=== PATIENT | female | born 1945 | race Hispanic/Latino ===

== ENCOUNTER 2019-07-24 11:01 | Observation (INO) | payer MEDICARE, OTHER ==
--- NOTE | 2019-07-23 15:48 | NUR ---
Checked patient temperature via skin probe: 97.7F. Patient denies being out of the country in the last 14 days. Patient denies being around anyone that has been out of the country in the last 14 days. Patient denies fever, cough and shortness of breath in the last 14 days.
[2019-07-23 16:00] LABS: BASOPHILS % 0.2 % (0.0-1.0); EOSINOPHILS # (AUTO) 0.1 (0.0-0.4); HEMATOCRIT 38.8 % (34.2-44.1); HEMOGLOBIN 12.7 g/dL (12.0-16.0); LYMPHOCYTES # (AUTO) 1.1 (1.0-3.2); MEAN CORPUSCULAR HEMOGLOBIN 31.2 pg (28-32); MEAN CORPUSCULAR HGB CONC 32.7 g/dL (31-35); MEAN CORPUSCULAR VOLUME 95.3 fL (81-99); MONOCYTES # (AUTO) 0.4 (0.2-0.8); MONOCYTES % 8.5 % (4.4-11.3); NEUTROPHILS # (AUTO) 3.4 (2.1-6.9); NEUTROPHILS % 68.1 % (38.7-80.0); PLATELET COUNT 225 x10e3/uL (140-360); RED BLOOD COUNT 4.07 x10e6/uL (3.6-5.1); RED CELL DISTRIBUTION WIDTH 13.2 % (11.7-14.4)
[2019-07-23 16:24] LABS: ALANINE AMINOTRANSFERASE 21 IU/L (0-55); ALBUMIN 4.2 g/dL (3.5-5.0); ALKALINE PHOSPHATASE 112 IU/L (40-150); ANION GAP 9.5 mmol/L (8-16); BLOOD UREA NITROGEN 7 mg/dL (7-26); BUN/CREATININE RATIO 9 (6-25); CALCIUM 9.4 mg/dL (8.4-10.2); CARBON DIOXIDE 27 mmol/L (22-29); CHLORIDE 106 mmol/L (98-107); CREATININE, SERUM 0.78 mg/dL (0.57-1.11); EST GLOMERULAR FILTRATION RATE > 60 ML/MIN (60-); GLUCOSE 150 mg/dL (74-118); POTASSIUM 3.5 mmol/L (3.5-5.1); SODIUM 139 mmol/L (136-145)
[~2019-07-24] VITALS: Ht 149.9 cm; Wt 57.2 kg
[~2019-07-24 11:01] MED LIST: AMLODIPINE BESYL5 MG PO; BENAZEPRIL HCL10 MG PO
--- OUTSIDE RECORDS SUMMARY | 2019-07-24 11:04 | XMS REPORT ---
Author Organization Unknown Address [address] [place] [address] Phone [phone] Care Team Providers Care Pension Manager Name Role Phone Yin Rivas 60 [phone] Allergies Code Code System Name Reaction Severity Status Onset No Known Allergies Active Medications Name Status Start Date Stop Date amlodipine 5 mg tablet Take 1 tablet every day by oral route. Active Not available aspirin 81 mg chewable tablet Chew 1 tablet every day by oral route. Active Not available atorvastatin 20 mg tablet Active Not available hydrochlorothiazide 25 mg tablet Completed 08/02/2017 lisinopril 20 mg tablet Completed 01/10/2017 lisinopril 40 mg tablet TAKE 1 TABLET BY MOUTH DAILY FOR 90 DAYS Active Not available metoprolol tartrate 25 mg tablet Completed 08/02/2017 trazodone 50 mg tablet Active Not available Vitamin D2 50,000 unit capsule Take 1 capsule every week by oral route for 90 days. 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 History Long-term Drug Therapy Active 05/27/2014 History Finding of Body Mass Index Unknown 05/27/2014 History Thrombocytopenic Disorder Active 09/17/2016 Vitamin D Deficiency Active 02/15/2017 Procedures Date Name Performed by 2013 Colonoscopy Information not available 05/13/1979 Cholecystectomy Information not available 02/21/2016 MAMMO, Screening, Bilateral [facility] (Imaging) [address] [place] [address] (Work Place) 02/21/2016 Bone Density [facility] (Imaging) [address] [place] [address] (Work Place) 02/06/2017 Electrocardiogram [facility] [address] [facility] [address] [place] [address] (Work Place) 08/02/2017 MAMMO, Screening, Bilateral [facility] (Imaging) [address] [place] [address] (Work Place) Notes: 05/26/2014: S/P Gall Bladder Removed; Surgery Date: 1979 Lab Results Date Name Specimen Result Interpretation Description Value Range Status Address 02/06/2017 HbA1C (Hemoglobin a1C), Blood Normal Hemoglobin a1C 5.4 % of total HGB <5.7 % of total HGB Final [facility] Laboratory: [address] [place] [address] EAG (mg/dL) 108 (calc) Final [facility] Laboratory: [address] [place] [address] EAG (mmol/L) 6.0 (calc) Final [facility] Laboratory: [address] [place] [address] 02/06/2017 Vitamin D, 25-Hydroxy, Total, Serum Low Vitamin D,25-Oh,total,ia 8 NG/mL 30-100 NG/mL Final [facility] Laboratory: [address] [place] [address] 02/06/2017 Vitamin B12, Serum Normal Vitamin B12 560 pg/mL 200-1100 pg/mL Final [facility] Laboratory: [address] [place] [address] 02/06/2017 TSH, Serum or Plasma Normal Tsh 2.28 mIU/L 0.40-4.50 mIU/L Final [facility] Laboratory: [address] [place] [address] 02/06/2017 CBC W/ Auto Diff Normal Platelet Estimation adequate adequate Final [facility] Laboratory: [address] [place] [address] Normal CBC Morphology normal Final [facility] Laboratory: [address] [place] [address] Low White Blood Cell Count 3.7 thousand/uL 3.8-10.8 thousand/uL Final [facility] Laboratory: [address] [place] [address] Normal Red Blood Cell Count 4.15 million/uL 3.80-5.10 million/uL Final [facility] Laboratory: [address] [place] [address] Normal Hemoglobin 12.8 g/dL 11.7-15.5 g/dL Final [facility] Laboratory: [address] [place] [address] Normal Hematocrit 38.9 % 35.0-45.0 % Final [facility] Laboratory: [address] [place] Normal Mcv 93.7 fL 80.0-100.[address] [facility]: [address] [place] Normal Mch 30.8 pg 27.0-33.[address] [facility]: [address] [place] Normal Mchc 32.9 g/dL 32.0-36.0 g/dL Final [facility] Laboratory: [address] [place] Normal Rdw 12.8 % 11.0-15.0 % Final [facility] Laboratory: [address] [place] Normal Platelet Count tnp thousand/uL Final [facility]: [address] [place] Normal Absolute Neutrophils 2005 cells/uL 2873-9898 cells/uL Final [facility]: [address] [place] Normal Absolute Lymphocytes 1129 cells/uL 850-3900 cells/uL Final [facility]: [address] [place] Normal Absolute Monocytes 426 cells/uL 200-950 cells/uL Final [facility]: [address] [facility] [facility] Absolute Eosinophils 130 cells/uL 15-500 cells/uL Final [facility]: [address] [place] Normal Absolute Basophils 11 cells/uL 0-200 cells/uL Final [facility]: [address] [place] Normal Neutrophils 54.2 % Final [facility]: [address] [place] Normal Lymphocytes 30.5 % Final [facility]: [address] [place] Normal Monocytes 11.5 % Final [facility]: [address] [facility] [facility] Normal Eosinophils 3.5 % Final [facility]: [address] [place] [address] Normal Basophils 0.3 % Final [facility]: [address] [facility] [facility] Comment(s) Final [facility] [address] [facility] [facility] 02/06/2017 VICKIE (Antinuclear Antibodies) Igg, Ifa, Serum ABNORMAL VICKIE Screen, Ifa positive negative Final [facility] [address] [facility] [facility] 02/06/2017 CMP, Serum or Plasma High Glucose 103 mg/dL 65-99 mg/dL Final [facility]: [address] [place] [address] Normal Urea Nitrogen (BUN) 11 mg/dL 7-25 mg/dL Final [facility]: [address] [place] [address] Low Creatinine 0.51 mg/dL 0.60-0.93 mg/dL Final [facility]: [address] Normal eGFR Non-afr. Bermudian 95 mL/min/1.73m2 > or=60 mL/min/1.73m2 Final [facility]: [address] Normal eGFR 111 mL/min/1.73m2 > or=60 mL/min/1.73m2 Final [facility]: [address] Normal BUN/creatinine Ratio 22 (calc) 6-22 (calc) Final [facility]: [address] [place] [address] Normal Sodium 140 mmol/L 135-146 mmol/L Final [facility]: [address] Normal Potassium 4.2 mmol/L 3.5-5.3 mmol/L Final [facility]: [address] Normal Chloride 107 mmol/L 98-110 mmol/L Final [facility]: [address] Normal Carbon Dioxide 27 mmol/L 20-31 mmol/L Final [facility]: [address] Normal Calcium 8.9 mg/dL 8.6-10.4 mg/dL Final [facility]: [address] Normal Protein, Total 7.1 g/dL 6.1-8.1 g/dL Final [facility]: [address] Normal Albumin 4.0 g/dL 3.6-5.1 g/dL Final [facility]: [address] Normal Globulin 3.1 g/dL (calc) 1.9-3.7 g/dL (calc) Final [facility]: [address] Normal Albumin/globulin Ratio 1.3 (calc) 1.0-2.5 (calc) Final [facility]: [address] Normal Bilirubin, Total 0.5 mg/dL 0.2-1.2 mg/dL Final [facility] Laboratory: [address] Normal Alkaline Phosphatase 91 U/L 33-130 U/L Final [facility]: [address] Normal Ast 20 U/L 10-35 U/L Final [facility]: [address] Normal Alt 24 U/L 6-29 U/L Final [facility]: [address] 02/06/2017 T4, Free, Serum Normal T4, Free 1.1 NG/dL 0.8-1.8 NG/dL Final [facility]: [address] [place] [address], [place] 02/06/2017 VICKIE (Antinuclear Antibodies) Titer + Pattern, Ifa, Serum ABNORMAL VICKIE Pattern speckled Final [facility] Laboratory: [address] [place] [address] High VICKIE Titer 1:[address] [facility]: [address] 02/06/2017 Stage 1 Normal DNA (Ds) Antibody 1 IU/mL Final [facility]: [address] Normal Sm Antibody <1.0 neg ai <1.0 neg ai Final [facility]: [address] Normal Sm/cyber incident handler Antibody <1.0 neg ai <1.0 neg ai Final [facility]: [address] Normal Gas Station Clerk Antibody <1.0 neg ai <1.0 neg ai Final [facility]: [address] Normal Chromatin (Nucleosomal) Antibody <1.0 neg ai <1.0 neg ai Final [facility]: [address] 02/06/2017 Stage 2 Normal Sjogren's Antibody (ss-A) <1.0 neg ai <1.0 neg ai Final [facility]: [address] Normal Sjogren's Antibody (ss-B) <1.0 neg ai <1.0 neg ai Final [facility] Laboratory: [address] Normal Scl-70 Antibody <1.0 neg ai <1.0 neg ai Final [facility]: [address] [place] Normal Bernarda-1 Antibody <1.0 neg ai <1.0 neg ai Final [facility]: [address] [place] 02/06/2017 Stage 3 Normal Centromere B Antibody <1.0 neg ai <1.0 neg ai Final [facility]: [address] [place] Normal Ribosomal P Antibody <1.0 neg ai <1.0 neg ai Final [facility]: [address], [place] 02/06/2017 Interpretation Interpretation Final [facility]: [address] [facility] [facility] 09/03/2016 CBC W/ Auto Diff ABNORMAL Platelet Estimation decreased adequate Final [facility]: [address] [place] Normal CBC Morphology normal Final [facility]: [address] [facility] [facility] Normal White Blood Cell Count 5.1 thousand/uL 3.8-10.8 thousand/uL Final [facility]: [address] [place] Normal Red Blood Cell Count 4.18 million/uL 3.80-5.10 million/uL Final [facility]: [address] [facility] Normal Hemoglobin 12.6 g/dL 11.7-15.5 g/dL Final [facility]: [address] [place] Normal Hematocrit 39.4 % 35.0-45.0 % Final [facility]: [address] [facility] Normal Mcv 94.1 fL 80.0-100.[address] [facility]: [address] [place] Normal Mch 30.1 pg 27.0-33.[address] [facility]: [address] [facility] Normal Mchc 32.0 g/dL 32.0-36.0 g/dL Final [facility]: [address] [place] Normal Rdw 14.6 % 11.0-15.0 % Final [facility]: [address] [facility] Low Platelet Count 109 thousand/uL 140-400 thousand/uL Final [facility]: [address] [facility] High Mpv 13.6 fL 7.5-12.[address] [facility]: [address] [place], [place] Normal Absolute Neutrophils 2846 cells/uL 1391-9930 cells/uL Final [facility]: [address], [place] Normal Absolute Lymphocytes 1719 cells/uL 850-3900 cells/uL Final [facility]: [address], [place] Normal Absolute Monocytes 449 cells/uL 200-950 cells/uL Final [facility]: [address], [place] Normal Absolute Eosinophils 66 cells/uL 15-500 cells/uL Final [facility]: [address], [place] Normal Absolute Basophils 20 cells/uL 0-200 cells/uL Final [facility]: [address], [place] Normal Neutrophils 55.8 % Final [facility]: [address], [place] Normal Lymphocytes 33.7 % Final [facility]: [address], [place] Normal Monocytes 8.8 % Final [facility]: [address], [place] Normal Eosinophils 1.3 % Final [facility]: [address], [place] Normal Basophils 0.4 % Final [facility]: [address], [place] Comment(s) Final [facility]: [address], [place] 08/13/2016 Lipid Panel, Serum Normal Cholesterol, Total 174 mg/dL 125- 200 mg/dL Final [facility] Lab: [address] [facility], [place] Normal HDL Cholesterol 55 mg/dL > or=46 mg/dL Final [facility] Lab: [address] [facility], [place] Normal Triglycerides 98 mg/dL <150 mg/dL Final [facility] Lab: [address] [facility], [place] Normal LDL-cholesterol 99 mg/dL (calc) <130 mg/dL (calc) Final [facility] Lab: [address] [facility], [place] Normal Chol/hdlc Ratio 3.2 (calc) < or=5.0 (calc) Final [facility] Lab: [address], [place] Normal Non HDL Cholesterol 119 mg/dL (calc) Final [facility] Lab: [address] [place] 08/13/2016 CMP, Serum or Plasma High Glucose 130 mg/dL 65-99 mg/dL Final [facility] Lab: [address] [facility], [place] Normal Urea Nitrogen (BUN) 10 mg/dL 7-25 mg/dL Final [facility] Lab: [address] [facility], [place] Low Creatinine 0.55 mg/dL 0.60-0.93 mg/dL Final [facility] Lab: [address] [facility], [place] Normal eGFR Non-afr. Bermudian 94 mL/min/1.73m2 > or=60 mL/min/1.73m2 Final [facility]: [address] [facility], [place] Normal eGFR 109 mL/min/1.73m2 > or=60 mL/min/1.73m2 Final [facility] Lab: [address] [facility], [place] Normal BUN/creatinine Ratio 18 (calc) 6-22 (calc) Final [facility] Lab: [address] [place] [address], [place] Normal Sodium 140 mmol/L 135-146 mmol/L Final [facility] Lab: [address] [place] [address], [place] Normal Potassium 3.8 mmol/L 3.5-5.3 mmol/L Final [facility] Lab: [address] [place] [address], [place] Normal Chloride 106 mmol/L 98-110 mmol/L Final [facility] Lab: [address] [place] [address], [place] Normal Carbon Dioxide 27 mmol/L 20-31 mmol/L [facility] Lab: [address] [place] [address], [place] Normal Calcium 8.9 mg/dL 8.6-10.4 mg/dL Final [facility] Lab: [address] [place] [address], [place] Normal Protein, Total 7.4 g/dL 6.1-8.1 g/dL Final [facility] Lab: [address] [place] [address], [place] Normal Albumin 4.2 g/dL 3.6-5.1 g/dL Final [facility] Lab: [address] [facility], [place] Normal Globulin 3.2 g/dL (calc) 1.9-3.7 g/dL (calc) Final [facility] Lab: [address] [place] [address], [place] Normal Albumin/globulin Ratio 1.3 (calc) 1.0-2.5 (calc) Final [facility] Lab: [address] [place] [address], [place] Normal Bilirubin, Total 0.6 mg/dL 0.2-1.2 mg/dL Final [facility] Lab: [address] [facility], [place] Normal Alkaline Phosphatase 114 U/L 33-130 U/L Final [facility] Lab: [address] [facility], [place] Normal Ast 20 U/L 10-35 U/L Final [facility] Lab: [address] [facility], [place] Normal Alt 22 U/L 6-29 U/L Final [facility]: [address] [facility], [place] 08/13/2016 CBC W/ Auto Diff ABNORMAL Platelet Estimation decreased adequate Final [facility] Lab: [address] [place] [address], [place] Normal CBC Morphology normal Final [facility] Lab: [address] [place] [address], [place] Normal White Blood Cell Count 4.2 thousand/uL 3.8-10.8 thousand/uL Final [facility] Lab: [address] [place] [address], [place] Normal Red Blood Cell Count 4.14 million/uL 3.80-5.10 million/uL Final [facility] Lab: [address] [place] [address], [place] Normal Hemoglobin 13.1 g/dL 11.7-15.5 g/dL Final [facility] Lab: [address] [facility], [place] Normal Hematocrit 38.7 % 35.0-45.0 % Final [facility] Lab: [address] [place] [address], [place] Normal Mcv 93.6 fL 80.0-100.0 fL Final [facility] Lab: [address] [place] [address], [place] Normal Mch 31.6 pg 27.0-33.0 pg Final [facility] Lab: [address] [place] [address], [place] Normal Mchc 33.7 g/dL 32.0-36.0 g/dL Final [facility] Lab: [address] [facility], [place] Normal Rdw 14.3 % 11.0-15.0 % Final [facility] Lab: [address] [facility], [place] Normal Platelet Count tnp thousand/uL Final [facility] Lab: [address] [facility], [place] Normal Absolute Neutrophils 2428 cells/uL 2900-2355 cells/uL Final [facility] Lab: [address], [place] Normal Absolute Lymphocytes 1214 cells/uL 850-3900 cells/uL Final [facility] Lab: [address], [place] Normal Absolute Monocytes 458 cells/uL 200-950 cells/uL Final [facility] Lab: [address], [place] Normal Absolute Eosinophils 84 cells/uL 15-500 cells/uL Final [facility] Lab: [facility] [address], [place] Normal Absolute Basophils 17 cells/uL 0-200 cells/uL Final [facility] Lab: [facility] [address], [place] Normal Neutrophils 57.8 % Final [facility] Lab: [facility] [address], [place] Normal Lymphocytes 28.9 % Final [facility] Lab: [facility] [address], [place] Normal Monocytes 10.9 % Final [facility] Lab: [facility] [address], [place] Normal Eosinophils 2.0 % Final [facility] Lab: [facility] [address], [place] Normal Basophils 0.4 % Final [facility] Lab: [address] [place] [address], [place] Comment(s) Final [facility] Lab: [address] [place] [address], [place] 08/13/2016 T4, Total, Serum Normal T4 (Thyroxine), Total 9.9 mcg/dL 4.5-12.0 mcg/dL Final [facility] Lab: [address] [place] [address], [place] 08/13/2016 TSH, Serum or Plasma Normal Tsh 1.37 mIU/L 0.40-4.50 mIU/L Final [facility] Lab: [address] [place] [address], [place] 08/13/2016 Lipid Panel, Serum Normal Cholesterol, Total 174 mg/dL 125- 200 mg/dL Final [facility] Laboratory: [address] [place] [address], [place] Normal HDL Cholesterol 55 mg/dL > or=46 mg/dL Final [facility]: [address] Normal Triglycerides 98 mg/dL <150 mg/dL Final [facility] Laboratory: [address] Normal LDL-cholesterol 99 mg/dL (calc) <130 mg/dL (calc) Final [facility]: [address] [place] [address], [place] Normal Chol/hdlc Ratio 3.2 (calc) < or=5.0 (calc) Final [facility]: [address] [place] Normal Non HDL Cholesterol 119 mg/dL (calc) Final [facility]: [address] [place] 08/13/2016 TSH, Serum or Plasma Normal Tsh 1.37 mIU/L 0.40-4.50 mIU/L Final [facility]: [address] [place] 08/13/2016 CBC W/ Auto Diff ABNORMAL Platelet Estimation decreased adequate Final [facility]: [address] [place] Normal CBC Morphology normal Final [facility]: [address] [place] Normal White Blood Cell Count 4.2 thousand/uL 3.8-10.8 thousand/uL Final [facility]: [address] [place] Normal Red Blood Cell Count 4.14 million/uL 3.80-5.10 million/uL Final [facility] Laboratory: [address] [place] Normal Hemoglobin 13.1 g/dL 11.7-15.5 g/dL Final [facility]: [address] [place] Normal Hematocrit 38.7 % 35.0-45.0 % Final [facility]: [address] [place] Normal Mcv 93.6 fL 80.0-100.[address] [facility]: [address] [place] Normal Mch 31.6 pg 27.0-33.[address] [facility]: [address] [place] Normal Mchc 33.7 g/dL 32.0-36.0 g/dL Final [facility]: [address] [place] Normal Rdw 14.3 % 11.0-15.0 % Final [facility]: [address] [place] Normal Platelet Count tnp thousand/uL Final [facility]: [address] [place] Normal Absolute Neutrophils 2428 cells/uL 1935-0538 cells/uL Final [facility]: [address] [place] Normal Absolute Lymphocytes 1214 cells/uL 850-3900 cells/uL Final [facility]: [address] [place] Normal Absolute Monocytes 458 cells/uL 200-950 cells/uL Final [facility]: [address], [place] Normal Absolute Eosinophils 84 cells/uL 15-500 cells/uL Final [facility]: [address], [place] Normal Absolute Basophils 17 cells/uL 0-200 cells/uL Final [facility]: [address], [place] Normal Neutrophils 57.8 % Final [facility]: [address], [place] Normal Lymphocytes 28.9 % [facility] [facility] Laboratory: [address], [place] Normal Monocytes 10.9 % Final [facility] Laboratory: [address] Aldana, [place] Normal Eosinophils 2.0 % Final [facility] Laboratory: [address] Aldana, [place] Normal Basophils 0.4 % Final [facility] Laboratory: [address] [place], [place] Comment(s) Final [facility] CMP, Serum or Plasma High Glucose 130 mg/dL 65-99 mg/dL Final [facility] Laboratory: [address] Martin [address] [place] [address] Normal Urea Nitrogen (BUN) 10 mg/dL 7-25 mg/dL Final [facility] Laboratory: [address] [place] [address], [place] Low Creatinine 0.55 mg/dL 0.60-0.93 mg/dL Final [facility] Laboratory: [address] Martin [address] [place] [address] Normal eGFR Non-afr. Bermudian 94 mL/min/1.73m2 > or=60 mL/min/1.73m2 Final [facility] Laboratory: [address] Al[address] Martin [address] [place] [address] Normal eGFR 109 mL/min/1.73m2 > or=60 mL/min/1.73m2 Final [facility] Laboratory: [address] Al[address] Martin [address] [place] [address] Normal BUN/creatinine Ratio 18 (calc) 6-22 (calc) Final [facility]: [address] Aldana, [place] Normal Sodium 140 mmol/L 135-146 mmol/L Final [facility] Laboratory: [address] [place] [address], [place] Normal Potassium 3.8 mmol/L 3.5-5.3 mmol/L Final [facility] Laboratory: 9[address] Al[address]ra Martin [address] [place] [address] Normal Chloride 106 mmol/L 98-110 mmol/L Final [facility]: [address] bryan [address] Normal Carbon Dioxide 27 mmol/L 20-31 mmol/L Final [facility] Laboratory: [address] bryan [address] Normal Calcium 8.9 mg/dL 8.6-10.4 mg/dL Final [facility] Laboratory: [address] bryan [address] Normal Protein, Total 7.4 g/dL 6.1-8.1 g/dL Final [facility] Laboratory: [address] bryan [address] Normal Albumin 4.2 g/dL 3.6-5.1 g/dL Final [facility] Laboratory: [address] bryan [address] Normal Globulin 3.2 g/dL (calc) 1.9-3.7 g/dL (calc) Final [facility] Laboratory: [address] Normal Albumin/globulin Ratio 1.3 (calc) 1.0-2.5 (calc) Final [facility] Laboratory: 55 Al[address] bryan [address] Normal Bilirubin, Total 0.6 mg/dL 0.2-1.2 mg/dL Final [facility] Laboratory: [address] bryan [address] Normal Alkaline Phosphatase 114 U/L 33-130 U/L Final [facility]: [address]ryan [address] Normal Ast 20 U/L 10-35 U/L Final [facility]: [address]ryan [address] Normal Alt 22 U/L 6-29 U/L Final [facility]: 55 [facility] [address] 08/13/2016 T4, Total, Serum Normal T4 (Thyroxine), Total 9.9 mcg/dL 4.5-12.0 mcg/dL Final [facility] Laboratory: [address] Electrocardiogram No observation recorded. [facility]: [address] [place] [address] Past Encounters 08/02/2017 Essential Hypertension; Immunization; Viral Immunization; Blood Glucose Abnormal; Vitamin D Deficiency; Screening Mammography; Thrombocytopenic Disorder; Pure Hypercholesterolemia RODNEY Bruno: [address] [place] [phone], Ph. 02/06/2017 Palpitations; Fatigue; Essential Hypertension; Hyperglycemia; Insomnia MINNA ZhuP: [address] [facility], [address], [place] [address], Ph. 09/17/2016 Thrombocytopenic Disorder; Pure Hypercholesterolemia; Essential Hypertension MINNA ZhuP: [address] [facility], [facility] [address], [place] [address], Ph. 08/31/2016 Thrombocytopenic Disorder Krupa PatelSIDRA: [id number] [place] [address] [address], [place] [address], Ph. 08/13/2016 Adult Health Examination; Essential Hypertension; Pure Hypercholesterolemia; Disorder of Bone and Articular Cartilage; Nuclear Senile Cataract; Varicose Veins of Lower Extremity; Screening for Malignant Neoplasm of Colon; Advance Directive Discussed with Patient; Body Mass Index 25-29 - Overweight; Vaccine Refused by Patient Krupa PatelSIDRA: [address] [place] [phone], Ph. 08/06/2016 Essential Hypertension; Pure Hypercholesterolemia Krupa PatelSIDRA: [id number] [place] [phone], Ph. 02/21/2016 Adult Health Examination; Body Mass Index 25-29 - Overweight; Essential Hypertension; Pure Hypercholesterolemia; Pain Due to Varicose Veins of Lower Extremity; Immunization Refused Krupa PatelSIDRA: [id number] [place] [phone], Ph. Social History Smoking Status Never Smoker Vaccine List Vaccine Type influenza, high dose seasonal 08/02/20170.5 mL pneumococcal conjugate PCV 13 08/02/20170.5 mL Notes: Refuses influenza and pneumonia vaccines Plan of Care Patient Instructions It was good to see you in the office today for your Medicare Annual Wellness Visit. You have been provided some information on healthy nutrition, including a diet rich in fruits and vegetables, minimizing simple carbohydrates, salt, and saturated fats. I want to encourage regular cardiovascular exercise such as walking at least 30 minutes daily, 5 times per week. Please remember to schedule any preventive health measures that we talked about today. You have also been provided education on fall prevention and community- based lifestyle interventions to help reduce health risks and promote healthy living in your [place] [employer] folder. Screening Recommendations 1. Vaccines Pneumococcal: discussed today and information sent with patient in their [facility] health folder Influenza: discussed today and information sent with patient in their [facility] health folder Shingles: discussed today and information sent with patient in their [facility] health folder Tetanus: discussed today and information sent with patient in their [facility] health folder 2. Mammography Screening: discussed today and information sent with patient in their [facility] health folder 3. Colorectal cancer Screening Colonoscopy: discussed today and information sent with patient in their [facility] health folder Fecal Occult Blood: discussed today and information sent with patient in their [facility] health folder 4. Bone Mass Measurement: discussed today 5. Pap test / Pelvic Exam Screening: discussed today 6. Eye Exam Screening: discussed today 7. Cholesterol Screening: discussed today 8. Diabetes Screening: discussed today Reminders Provider Appointments None recorded. Lab None recorded. Referral None recorded. Procedures None recorded. Surgeries None recorded. Imaging None recorded. Vitals 08/02/2017 11:45AM Est Patient Height Weight BMI Blood Pressure 4 ft 11 in 123.6 lbs 25 kg/m2 (1) 173/82 mm[Hg] (2) 164/83 mm[Hg] 02/06/2017 09:00AM Est Patient Height Weight BMI Blood Pressure 4 ft 11 in 126.4 lbs 25.5 kg/m2 (1) 165/90 mm[Hg] (2) 164/89 mm[Hg] 09/17/2016 11:00AM Work In Same Day Height Weight BMI Blood Pressure 4 ft 11 in 126.6 lbs 25.6 kg/m2 (1) 184/88 mm[Hg] (2) 171/89 mm[Hg] 08/13/2016 09:30AM NUCLEAR REACTOR ENGINEER/EST CPX Height Weight BMI Blood Pressure 4 ft 11 in 128 lbs 25.9 kg/m2 (1) 167/81 mm[Hg] (2) 157/76 mm[Hg] (3) 142/74 mm[Hg] 08/06/2016 10:00AM Est Patient Height Weight BMI Blood Pressure 4 ft 11 in 129.6 lbs 26.2 kg/m2 (1) 179/95 mm[Hg] (2) 179/92 mm[Hg] 02/21/2016 09:00AM NUCLEAR REACTOR ENGINEER/CPX/PROC Height Weight BMI Blood Pressure 4 ft 11 in 129.2 lbs 26.1 kg/m2 (1) 158/76 mm[Hg] (2) 138/76 mm[Hg] 05/26/2014 Height Weight BMI Blood Pressure 4 ft 11 in 126.6 lbs 25.57 kg/m2 130/80 mm[Hg] 10/28/2013 Height 4 ft 11 in 10/28/2013 Weight 128.4 lbs 10/02/2013 Height Weight 4 ft 11 in 125.8 lbs 01/14/2013 Height Weight 4 ft 11 in 125.6 lbs 03/03/2012 Height 4 ft 11 in 03/03/2012 Weight 123.8 lbs 04/24/2011 Height Weight 4 ft 11 in 124 lbs 04/20/2011 Height Weight 4 ft 11 in 123.6 lbs 11/02/2010 Height Weight 4 ft 11 in 124 lbs 09/29/2010 Height Weight 4 ft 11 in 123.4 lbs 08/18/2010 Height Weight 4 ft 11 in 123.5 lbs 09/12/2009 Weight 123 lbs 08/29/2009 Weight 120.6 lbs
--- OUTSIDE RECORDS SUMMARY | 2019-07-24 11:04 | XMS REPORT ---
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 Allergies, Adverse Reactions, Alerts This patient has no known allergies or adverse reactions. Medications This patient has no known medications. Encounters Start Date/Time End Date/Time Encounter Type Admission Type Attending Clinicians Care Facility Care Department Encounter ID 2019-04-30 10:31:00 2019-04-30 10:31:00 Outpatient [facility] [id number] 2019-02-17 10:37:00 2019-02-17 10:37:00 Outpatient [facility] [id number] 2019-01-26 10:58:00 2019-01-26 10:58:00 Outpatient [facility] [id number] 2018-12-18 22:16:00 2018-12-18 14:38:00 Inpatient E [facility] [id number] Results Test Description Test Time Test Comments Text Results Atomic Results Result Comments CT, ABDOMEN 2017-10-19 04:42:00 Reason for exam:->ABDOMINAL PAINWhat is the patient's sedation requirement?->No Sedation FINAL REPORT EXAM: CT of the abdomen and pelvis, with contrast CLINICAL HISTORY: Abdominal pain. TECHNIQUE: CT of the abdomen and pelvis was performed with intravenous contrast administration. This exam was performed according to our departmental dose optimization program which includes automated exposure control, adjustment of the mA and/or kV according to patient's size and/or use of iterative reconstructive technique. COMPARISON: None FINDINGS: LOWER CHEST: Within normal limits.LIVER: Mild hepatic steatosis.BILE DUCTS: Moderate intrahepatic biliary ductal dilatation. Marked extrahepatic biliary ductal dilatation with the common duct measuring 26 mm in diameter, tapering distally to 5 mm. No radiopaque stones or discrete lesion identifiedGALL BLADDER: Status post cholecy stectomy.PANCREAS: Within normal limits.SPLEEN: Within normal limits.ADRENALS: Within normal limits.KIDNEYS/URETERS: Subcentimeter hypodensity in the left interpolar region (48HU). Additional hypodensity in the left lower pole too small to characterize. Unremarkable right kidney. No hydronephrosis or radiopaque stones. URINARY BLADDER: Within normal limits.REPRODUCTIVE ORGANS: Within normal limits. BOWEL/MESENTERY: Sigmoid diverticulosis without acute diverticulitis. No bowel obstruction or abnormal wall thickening. Normal appendix.PERITONEUM/RETROPERITONEUM: No free air, free fluid or fluid collect ion. VESSELS: Mild atherosclerotic calcifications of the aorta and branches. LYMPH NODES: No abdominal or pelvic lymphadenopathy.SOFT TISSUES: Small to moderate narrow neck fat-containing right mid abdominal ventral hernia, with mild mesenteric congestion.BONES: Generalized osteopenia. No suspicious osseous lesions. IMPRESSION: Status post cholecystectomy. Biliary ductal dilatation without obstructing stone or discrete lesion. Findings are nonspecific given postcholecystectomy state and patient age. MRI may be for further evaluation as clinically warranted. Sigmoid diverticulosis without acute diverticulitis. No bowel obstruction, free air or fluid collections. Small to moderate narrow neck fat-containing right ventral hernia, with mild mesenteric congestion. Clinical correlation for incarceration is recommended. Signed: Oliva Bhardwaj Verified Date/Time: 10/19/2017 04:42:27 Reading Location: [address] Reading Room , CHEST, 2 VIEWS 2017-10-19 04:23:00 Reason for exam:->ABDOMINAL PAINShould this be performed at the bedside?->No FINAL REPORT INDICATION: ABDOMINAL PAIN COMPARISON: December 10, 2015 TECHNIQUE: Frontal and lateral views of the chest. FINDINGS: Lungs and pleura: Clear lungs. No effusion.Heart and mediastinum: Normal heart size. Unremarkable mediastinal contours.Osseous structures: No acute abnormality.Additional findings: None. IMPRESSION: No acute intrathoracic abnormality. Signed: JR Santana Robert MDReport Verified Date/Time: 10/19/2017 04:23:27 Reading Location: [address] Reading Room REHENSIVE METABOLIC PANEL 2017-10-19 02:36:00 TOTAL PROTEIN (BEAKER) (test stgw=231) 8.4 gm/dL 6.0-8.5 ALBUMIN (BEAKER) (test yidx=8630) 4.2 g/dL 3.5-5.0 ALKALINE PHOSPHATASE (BEAKER) (test wzsu=149) 216 U/L 30-115 BILIRUBIN TOTAL (BEAKER) (test kato=995) 0.9 mg/dL 0.1-1.2 SODIUM (BEAKER) (test kjic=704) 142 meq/L 135-148 POTASSIUM (BEAKER) (test tchq=644) 3.9 meq/L 3.6-5.5 CHLORIDE (BEAKER) (test hhfu=369) 105 meq/L 98-106 CO2 (BEAKER) (test ensr=630) 26 meq/L 24-32 BLOOD UREA NITROGEN (BEAKER) (test ooqu=230) 13 mg/dL 10-26 CREATININE (BEAKER) (test vzyt=991) 0.64 mg/dL 0.50-1.20 GLUCOSE RANDOM (BEAKER) (test sfpk=303) 152 mg/dL 70-110 CALCIUM (BEAKER) (test vgou=822) 9.3 mg/dL 8.5-10.5 AST (SGOT) (BEAKER) (test eddb=574) 435 U/L 5-40 ALT (SGPT) (BEAKER) (test para=158) 467 U/L 5-50 EGFR (BEAKER) (test raqx=2012) mL/min/1.73 sq m INSUFFICIENT CLINICAL DATA TO CALCULATE ESTIMATED GFR. [id number] 02:33:00* Test Item Value Reference Range Comments LIPASE (BEAKER) (test uyui=140) 102 U/L 40-240 URINALYSIS W/ REFLEX URINE [id number] 02:30:00* Test Item Value Reference Range Comments COLOR (BEAKER) (test qvbe=955) Yellow CLARITY (BEAKER) (test eywx=367) Cloudy SPECIFIC GRAVITY UA (BEAKER) (test psje=052) 1.025 1.001-1.035 PH UA (BEAKER) (test scsg=024) 5.5 5.0-8.0 PROTEIN UA (BEAKER) (test lezj=881) Negative Negative GLUCOSE UA (BEAKER) (test qkgk=363) Negative Negative KETONES UA (BEAKER) (test ozbj=785) Trace Negative BILIRUBIN UA (BEAKER) (test idoj=737) Positive Negative BLOOD UA (BEAKER) (test nunp=885) Negative Negative NITRITE UA (BEAKER) (test oqbv=411) Negative Negative LEUKOCYTE ESTERASE UA (BEAKER) (test xmqi=654) Small Negative UROBILINOGEN UA (BEAKER) (test hlrz=795) 4.0 mg/dL 0.2-1.0 BACTERIA (BEAKER) (test uvuf=680) Many RBC UA-MANUAL (BEAKER) (test ogov=6833) None Seen /HPF WBC UA-MANUAL (BEAKER) (test rbgn=8575) 10-20 /HPF SQUAMOUS EPITHELIAL MANUAL (BEAKER) (test mzln=1641) <5 /HPF SOURCE(BEAKER) (test bzgh=1312) CBC W/PLT COUNT & AUTO [id number] 02:23:00* Test Item Value Reference Range Comments WHITE BLOOD CELL COUNT (BEAKER) (test qihm=438) 5.7 10e3/i? L 4.0-10.0 RED BLOOD CELL COUNT (BEAKER) (test ukbj=635) 4.13 10e6/i? L 4.00-5.00 HEMOGLOBIN (BEAKER) (test etlb=319) 13.1 g/dL 12.0-15.0 HEMATOCRIT (BEAKER) (test uvxd=048) 39.5 % 36.0-45.0 MEAN CORPUSCULAR VOLUME (BEAKER) (test yuuv=813) 95.8 fL 82.0-99.0 MEAN CORPUSCULAR HEMOGLOBIN (BEAKER) (test xwfb=708) 31.8 pg 27.0-33.0 MEAN CORPUSCULAR HEMOGLOBIN CONC (BEAKER) (test hphi=443) 33.3 g/dL 32.0-36.0 RED CELL DISTRIBUTION WIDTH (BEAKER) (test nfhe=400) 11.8 % 10.3-14.2 PLATELET COUNT (BEAKER) (test ybfd=336) 229 10e3/i? L 150-430 MEAN PLATELET VOLUME (BEAKER) (test vijb=142) 8.5 fL 6.5-10.5 NEUTROPHILS RELATIVE PERCENT (BEAKER) (test gois=205) 65 % LYMPHOCYTES RELATIVE PERCENT (BEAKER) (test thts=810) 24 % MONOCYTES RELATIVE PERCENT (BEAKER) (test myrf=770) 8 % EOSINOPHILS RELATIVE PERCENT (BEAKER) (test fqxc=752) 3 % BASOPHILS RELATIVE PERCENT (BEAKER) (test frdu=202) 1 % NEUTROPHILS ABSOLUTE COUNT (BEAKER) (test zggf=040) 3.67 10e3/i? L 1.80-8.00 LYMPHOCYTES ABSOLUTE COUNT (BEAKER) (test ekfv=724) 1.36 10e3/i? L 1.48-4.50 MONOCYTES ABSOLUTE COUNT (BEAKER) (test uspj=643) 0.47 10e3/i? L 0.00-1.30 EOSINOPHILS ABSOLUTE COUNT (BEAKER) (test mmuw=766) 0.15 10e3/i? L 0.00-0.50 BASOPHILS ABSOLUTE COUNT (BEAKER) (test lntb=040) 0.03 10e3/i? L 0.00-0.20
[2019-07-24] MEDS ORDERED: FENTANYL CITRATE/PF 100MCG/2 ML INJ ONE (16:38)
[2019-07-24] MEDS ORDERED: LIDOCAINE HCL 2% LOCAL 20 ML VIAL ONE (16:38)
[2019-07-24] MEDS ORDERED: MIDAZOLAM HCL 2 MG/2 ML VIAL ONE ×2 (16:38→17:24)
[2019-07-24] MEDS ORDERED: IOPAMIDOL 370 MG/ML 200 ML INFUS..BTL INJ ONE (16:39)
[2019-07-24] MEDS ORDERED: HEPARIN SOD/SOD CHLORIDE 2,000 ML ONE (16:39)
[2019-07-24] MEDS ORDERED: SODIUM CHLORIDE 0.9% 1000ML 1,000 ML ONE (16:39)
[2019-07-24] MEDS ORDERED: CLOPIDOGREL BISULFATE 75 MG TAB ONE (17:50)
[2019-07-24] MEDS ORDERED: ASPIRIN 325 MG TAB ONE (17:50)
--- NOTE | 2019-07-24 18:41 | NUR ---
Patient arrived to unit at approximately 1745. Lying flat in bed. AAOx3. Acyanotic. No distress noted. Dressing noted to right groin clean, dry, and intact. Family present at bedside. Call light in reach. Siderails up x2. Bed low.
--- NOTE | 2019-07-24 19:25 | NUR ---
Report given to CARMELLA Cazares. Pt resting in supine position. No distress noted. Family present at bedside. Reminded to keep right lower extremity straight and to rest in bed until 8PM. Verbalized understanding.
[2019-07-24 19:46] VITALS: BP 112/66
[2019-07-24 20:00] VITALS: BP 112/66
--- NOTE | 2019-07-24 20:01 | NUR ---
NOTIFIED DR. CROOKS REGARDING BLEEDING NOTED TO RIGHT GROIN DRESSING HEART CATH SITE. SAID TO APPLY MANUAL PRESSURE TO SITE.
--- NOTE | 2019-07-24 20:25 | NUR ---
MANUAL PRESSURE APPLIED TO RIGHT GROIN HEART CATH SIRE FOR 20 MINS, ALSO PRESSURE DRESSING APPLIED AND LEFT IN PLACE. Addendum: 07/24/19 at 2346 by Sage Louis RN PATIENT LAYING FLAT IN BED
--- NOTE | 2019-07-24 22:30 | NUR ---
RECHECKED RIGHT GROIN, NO ACTIVE BLEEDING NOTED. PATIENT REMAINS LAYING FLAT IN BED.
[2019-07-25] VITALS: BP 95/58
[2019-07-25] MEDS ORDERED: ASPIR 8181 MG PO (00:42)
[2019-07-25] MEDS ORDERED: LISINOPRIL10 MG PO (00:42)
[2019-07-25] MEDS ORDERED: CRESTOR10 MG PEG (00:42)
[2019-07-25] MEDS ORDERED: URSODIOL300 MG PO (00:42)
[2019-07-25] MEDS ORDERED: METOPROLOL SUCC25 MG PO (00:42)
[2019-07-25 03:44] VITALS: BP 102/60
--- NOTE | 2019-07-25 07:00 | NUR ---
BEDSIDE SHIFT REPORT RECEIVED PT IN STABLE CONDITION, DENIES PAIN AT THIS TIME, PRESSURE DSG TO R GROIN C/D/I NO ACTIVE BLEEDING NOTED AT THIS TIME, PEDAL PULSES PALPABLE, R AC 20G NO SS OF INFILTRATION NOTED, NO OTHER CO VOICED CALL LIGHT IN REACH WILL CONTINUE TO MONITOR
[2019-07-25 07:54] VITALS: BP 131/60
[2019-07-25 08:26] VITALS: BP 131/60
--- NOTE | 2019-07-25 09:00 | NUR ---
groin site soft,nontender, no ss of bleeding noted at this time will continue to monitor
--- NOTE | 2019-07-25 11:00 | NUR ---
groin site, soft,nontender, no ss of bleeding noted to site at this time. will continue to monitor
[2019-07-25 11:34] VITALS: BP 99/50
[2019-07-25] MEDS ORDERED: PLAVIX75 MG PO (14:53)
[2019-07-25 15:39] VITALS: BP 119/71
== END 2019-07-25 16:17 | disposition home or self-care (01) ==
LOC: CATH LAB 11:01 → MED/SURG 17:16
PROVIDERS: ADMIT Internal Medicine; ATTEND Internal Medicine
DX: I25.118 Atherosclerotic heart disease of native coronary artery with other forms of angina pectoris (principal); I10 Essential (primary) hypertension; Z01.812 Encounter for preprocedural laboratory examination; Z79.02 Long term (current) use of antithrombotics/antiplatelets; Z79.82 Long term (current) use of aspirin; Z82.49 Family history of ischemic heart disease and other diseases of the circulatory system
CPT/HCPCS: 93458; C9600; 36415; 80053; 85025; 92928; 93454; 99152; 99153; C1725; C1760; C1874; C1876; C1887; G0378; J2001; J2250; J3010; J7030; Q9967

== ENCOUNTER → 2020-12-20 | Day surgery (SDC) | payer MEDICARE ==
[2020-12-19 12:24] LABS: BASOPHILS % 0.4 % (0.0-1.0); EOSINOPHILS # (AUTO) 0.1 (0.0-0.4); HEMOGLOBIN 11.8 g/dL (12.0-16.0); LYMPHOCYTES # (AUTO) 1.4 (1.0-3.2); LYMPHOCYTES % 29.4 % (18.0-39.1); MEAN CORPUSCULAR HEMOGLOBIN 31.5 pg (28-32); MEAN CORPUSCULAR HGB CONC 31.9 g/dL (31-35); MEAN CORPUSCULAR VOLUME 98.7 fL (81-99); MONOCYTES # (AUTO) 0.5 (0.2-0.8); MONOCYTES % 9.4 % (4.4-11.3); NEUTROPHILS # (AUTO) 2.8 (2.1-6.9); NEUTROPHILS % 59.4 % (38.7-80.0); PLATELET COUNT 193 x10e3/uL (140-360); RED BLOOD COUNT 3.75 x10e6/uL (3.6-5.1); RED CELL DISTRIBUTION WIDTH 12.8 % (11.7-14.4)
[~2020-12-20] MED LIST changes: +ASPIR 8181 MG PO; +CRESTOR10 MG PEG; +HYDROCHLOROTHIA25 MG PO; +LIDOCAINE HCL 2% LOCAL INJ 5 ML SDV VIAL INJ ONE; +LISINOPRIL10 MG PO; +METOPROLOL SUCC25 MG PO; +PLAVIX75 MG PO; +PROPOFOL IV EMULSION 10 MG/ML 20 ML VIAL ONE; +PROTONIX20 MG PO; +URSODIOL300 MG PO
[2020-12-20 11:16] VITALS: BP 101/56
== END | disposition home or self-care (01) ==
LOC: OR 08:21
PROVIDERS: ATTEND Internal Medicine Gastroenterology
DX: D12.4 Benign neoplasm of descending colon (principal); D12.0 Benign neoplasm of cecum; K57.90 Diverticulosis of intestine, part unspecified, without perforation or abscess without bleeding; K64.8 Other hemorrhoids; K44.9 Diaphragmatic hernia without obstruction or gangrene; K29.70 Gastritis, unspecified, without bleeding; K31.7 Polyp of stomach and duodenum; R68.81 Early satiety; K83.8 Other specified diseases of biliary tract; K21.9 Gastro-esophageal reflux disease without esophagitis; I10 Essential (primary) hypertension; E78.5 Hyperlipidemia, unspecified; I25.10 Atherosclerotic heart disease of native coronary artery without angina pectoris; Z79.01 Long term (current) use of anticoagulants; Z95.5 Presence of coronary angioplasty implant and graft; Z90.49 Acquired absence of other specified parts of digestive tract; Z01.810 Encounter for preprocedural cardiovascular examination; Z01.812 Encounter for preprocedural laboratory examination; Z20.822 Contact with and (suspected) exposure to COVID-19
CPT/HCPCS: 36415; 43239; 45380; 45384; 85025; 93005; J2001; J2704; U0002; 45378